=== PATIENT | female | born 1985 | race Caucasian/White ===

== ENCOUNTER 2021-10-16 10:51 | Emergency (ER) | payer OTHER, SELFPAY ==
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
[2021-10-16 11:03] VITALS: BP 133/86; PULSE 67; RESP 16; TEMP 36.9; O2SAT 99
== END 2021-10-16 11:24 | disposition home or self-care (01) ==
PROVIDERS: Emergency Provider Nurse Practitioner Family; PCP Nurse Practitioner Family
DX: S89.92XA Unspecified injury of left lower leg, initial encounter (principal); V03.10XA Pedestrian on foot injured in collision with car, pick-up truck or van in traffic accident, initial encounter
CPT/HCPCS: 81003; 87880; 99203; G0463

== ENCOUNTER 2022-01-13 09:40 | Emergency (ER) | payer OTHER, SELFPAY ==
[2022-01-13 09:48] VITALS: BP 128/79; PULSE 96; RESP 18; TEMP 36.9; O2SAT 97
--- NOTE | 2022-01-13 09:50 | ED.URI ---
HPI - URI/Sore Throat General Chief Complaint: Upper Respiratory Infection Stated Complaint: sore throat Time Seen by Provider: 01/13/22 10:00 Source: patient, RN notes reviewed and old records reviewed Mode of arrival: ambulatory Limitations: no limitations History of Present Illness HPI Narrative: 36-year-old female who presents to [facility] care with complaints of sore throat and cough which started yesterday and symptoms have increased today. Patient reports that her left tonsil is swollen and it is painful to swallow. She states that she has been running a 100F temperature and she awoke this morning drenched in sweat. Patient has had her COVID and influenza shot. MD elicited complaint: fever, cough and sore throat Pertinent past history: asthma and other (strep) Onset (ago): day(s) (1) Pain scale (0-10): 5 Exacerbating factors: swallowing Treatments prior to arrival: other (dayqui) Related Data Allergies Allergy/AdvReac Type Severity Reaction Status Date / Time penicillin G Allergy Mild Rash Verified 10/16/21 11:05 Sulfa (Sulfonamide Allergy Mild Rash Verified 10/16/21 11:05 Antibiotics) Review of Systems Review of Systems: CONSTITUTIONAL: Positive fever, chills, or sweats. EYES: Denies visual changes, redness, or discharge. ENT: Denies rhinorrhea, congestion,positive sore throat, or otalgia. CARDIOVASCULAR: Denies chest pain, palpitations, or edema. RESPIRATORY: Positive for dry cough no dyspnea. GASTROINTESTINAL: Denies abdominal pain, nausea, vomiting, or diarrhea. GENITOURINARY: Denies dysuria or hematuria. SKIN: Denies rash or itching. MUSCULOSKELETAL: Denies back pain, joint pain, or myalgia. NEUROLOGIC: Denies headache, numbness, or weakness. PSYCHIATRIC: Positive history of anxiety or depression. All systems reviewed & are unremarkable except as noted in HPI and below PMFSH Past Medical History Medical History (Updated 01/15/22 @ 10:15 by Cassi Elise NP) Anxiety and depression Strep throat Surgical History Surgical History (Updated 01/13/22 @ 21:02 by Cassi Elise NP) H/O left knee surgery x2 Family History Family History (Updated 01/13/22 @ 09:53 by Cassi Elise NP) Grandparent Diabetes mellitus Hypertension Heart disease Cerebrovascular accident Arthritis Father Hypertension Heart disease Arthritis Mother Hypertension Social History Social History (Updated 01/13/22 @ 21:02 by Cassi Elise NP) Smoking status: Never smoker Alcohol intake: current Alcohol use details: social Substance use type: does not use Living arrangements: with family Gender identity (if verbalized by the patient): Female Comments At time of signature, agree with nursing past medical, surgical, social and family history. There is no relevant family history pertinent to the presenting complaint Exam Narrative: GENERAL:Ill-appearing, well-nourished, and in no acute distress. HEAD: Normocephalic, atraumatic. EYES: PERRLA and EOMI. ENT: Nares clear, no rhinorrhea or epistaxis. Mucous membranes moist.TM's normal with good light reflex, throat red left tonsil enlarged red with white pus pocket noted. NECK: Supple.lymphadenopathy CHEST: Clear to auscultation. No respiratory distress. dry cough no dyspnea SAO2 97% on room air HEART: Regular rate and rhythm. No murmur heard. Normal peripheral pulses. ABDOMEN: Soft, nontender, nondistended, normal active bowel sounds. EXTREMITIES: Normal range of motion. No edema. SKIN: Warm, dry, no rash. NEURO: No focal deficits. Alert and oriented x3. Course Course Level of Care: Express Care Visit Vital Signs Vital signs: Vital Signs Temperature 36.9 C 01/13/22 09:48 Pulse Rate 96 01/13/22 09:48 Respiratory Rate 18 01/13/22 09:48 Blood Pressure 128/79 01/13/22 09:48 Pulse Oximetry 97 01/13/22 09:48 Oxygen Delivery Room Air 01/13/22 09:48 Temperature 36.9 C 01/13/22 09:48 Pulse Rate 96 01/13/22 0
== END 2022-01-13 10:23 | disposition home or self-care (01) ==
PROVIDERS: Emergency Provider Registered Nurse; PCP Nurse Practitioner Family
DX: J02.0 Streptococcal pharyngitis (principal)
CPT/HCPCS: 87880; 99213; G0463

== ENCOUNTER 2022-04-30 16:41 | Emergency (ER) | payer OTHER, SELFPAY ==
--- NOTE | 2022-04-30 16:46 | ED.SKABFB ---
HPI - Skin/Abscess/Foreign Bdy General Chief complaint: Skin/Abscess/Foreign Body Stated complaint: Skin Problem Time Seen by Provider: 04/30/22 16:55 Source: patient Mode of arrival: ambulatory Limitations: no limitations History of Present Illness HPI narrative: Nakia is a 36-year-old female patient presenting to clinic today with complaints of a skin sore/mass to the left mid forehead that has gradually gotten worse over the past 2 days. Area is approximately half centimeter and tender to touch Related Data Allergies Allergy/AdvReac Type Severity Reaction Status Date / Time penicillin G Allergy Mild Rash Verified 04/30/22 16:56 Sulfa (Sulfonamide Allergy Mild Rash Verified 04/30/22 16:56 Antibiotics) Review of Systems Review of Systems: Pertinent positives per HPI. Patient denies any fever, chills, rash, headache, visual changes, dizziness, cough, runny nose, sore throat, shortness of breath, chest pain, palpitations, nausea, vomiting, diarrhea, constipation, abdominal pain, or any urinary issues. PMFSH Past Medical History Medical History Anxiety and depression Strep throat Surgical History Surgical History H/O left knee surgery x2 Family History Family History Grandparent Diabetes mellitus Hypertension Heart disease Cerebrovascular accident Arthritis Father Hypertension Heart disease Arthritis Mother Hypertension Social History Social History Smoking status: Never smoker Alcohol intake: current Alcohol use details: social Substance use type: does not use Gender identity (if verbalized by the patient): Female Comments At the time of my signature, I reviewed and agree with the nursing past medical, surgical, social, and family history. There is no relevant family history pertinent to the patient complaint. Exam Narrative: General: Well-developed, well nourished, in no apparent distress Head: Normocephalic, atraumatic. Cardio: Regular rate and rhythm, s1 and s2 normal, no murmur appreciated. Resp: Clear to auscultation bilaterally, no rhonchi, rales, wheezing or rubs. Integumentary: [place], warm, and dry, 0.5 cm firm tender mass with mild redness to the left mid forehead near the top of the nasal bridge. Area is non fluctuant Course Course Emergency Course: Portions of this record may have been created with voice recognition software. Level of Care: Express Care Visit Vital Signs Vital signs: Vital signs reviewed MDM - Skin/Abscess/Foreign Bdy MDM Narrative Medical decision making narrative: At the time of visit patient is resting comfortably on the exam table. I suspect the patient may have a skin infection (small abscess) but cannot rule out a cyst. We will give course of doxycycline to see if it resolves. Recommend follow-up with your PCP in 7 to 10 days if symptoms persist or sooner if they worsen. Supportive measures were discussed with the patient she voiced understanding of discharge instructions and agrees to treatment plan Differential Diagnosis Differential diagnosis: Likely abscess of skin or subcutaneous tissue and other (Firm skin mass, cyst) Discharge Plan Discharge Clinical Impression: Localized skin mass, lump, or swelling Patient Disposition: Home, Self-Care Condition: Stable Instructions: Antibiotic Form Additional Instructions: This could be the beginning of an abscess or cyst-we will give doxycycline to see if this resolves Take doxycycline as prescribed May take Tylenol/Motrin as needed for pain May apply moist heat to the affected area to see if you can get this to a head and have it drained Follow-up with your PCP in 7 to 10 days if symptoms persist or sooner if they worsen Pr
[2022-04-30 16:48] VITALS: BP 138/78; PULSE 58; RESP 14; TEMP 36.9; O2SAT 100
== END 2022-04-30 17:05 | disposition home or self-care (01) ==
PROVIDERS: Emergency Provider Nurse Practitioner Family; PCP Nurse Practitioner Family
DX: R22.0 Localized swelling, mass and lump, head (principal)
CPT/HCPCS: 99213; G0463

== ENCOUNTER 2022-07-11 12:51 | Emergency (ER) | payer OTHER, SELFPAY ==
[2022-07-11 13:00] VITALS: BP 131/66; PULSE 86; RESP 14; TEMP 37.5; O2SAT 99
--- NOTE | 2022-07-11 13:59 | ED.URI ---
HPI - URI/Sore Throat General Chief Complaint: Upper Respiratory Infection Stated Complaint: sore throat Time Seen by Provider: 07/11/22 13:59 Source: patient Mode of arrival: ambulatory Limitations: no limitations History of Present Illness MD elicited complaint: cough and sore throat Related Data Allergies Allergy/AdvReac Type Severity Reaction Status Date / Time penicillin G Allergy Mild Rash Verified 04/30/22 16:56 Sulfa (Sulfonamide Allergy Mild Rash Verified 04/30/22 16:56 Antibiotics) Review of Systems Review of Systems: CONSTITUTIONAL: Denies malaise, chills, sweats, or fever. EYES: Denies visual changes, redness, or discharge. ENT: Reports rhinorrhea, congestion, sinus pain, otalgia and sore throat. CARDIOVASCULAR: Denies chest pain, palpitations, or edema. RESPIRATORY: Reports cough.? Denies dyspnea. GASTROINTESTINAL: Denies abdominal pain, nausea, vomiting, diarrhea SKIN: Denies rash or itching. MUSCULOSKELETAL: Denies myalgia. NEUROLOGIC: Denies headache. All systems reviewed & are unremarkable except as noted in HPI and below PMFSH Past Medical History Medical History Anxiety and depression Strep throat Surgical History Surgical History H/O left knee surgery x2 Family History Family History Grandparent Diabetes mellitus Hypertension Heart disease Cerebrovascular accident Arthritis Father Hypertension Heart disease Arthritis Mother Hypertension Social History Social History Smoking status: Never smoker Alcohol intake: current Alcohol use details: social Substance use type: does not use Gender identity (if verbalized by the patient): Female Comments At time of signature, agree with nursing past medical, surgical, social and family history. There is no relevant family history pertinent to the presenting complaint Exam Narrative: GENERAL: Well-appearing, well-nourished, and in no acute distress. HEAD: Normocephalic EYES: PERRLA, conjunctivae clear ENT: Nares clear, turbinates edematous and erythematous, clear discharge. Mucous membranes moist. TM pearly harry with dull light reflex bilaterally; no tragal tenderness. Oropharynx erythematous without lesions. Tonsils not enlarged and without exudate, no drooling, no hoarseness, no trismus, uvula midline. NECK: Supple. No lymphadenopathy CHEST: Clear to auscultation, breath sounds equal. No wheezing, rhonchi, rales, or stridor. No respiratory distress, speaks in full sentences. HEART: Regular rate and rhythm. No murmur heard. SKIN: Warm, dry, no rash. NEURO: Alert and oriented x3. PSYCH: Normal mood and affect Course Course Emergency Course: Patient is aware of diagnosis, understands and agrees to treatment plan.? Anticipatory guidance given.? Patient agrees to follow-up as directed and is aware of reasons to seek care at the emergency department. Portions of this record may have been created with voice recognition software Level of Care: Express Care Visit Vital Signs Vital signs: Vital Signs Temperature 37.5 C 07/11/22 13:00 Pulse Rate 86 07/11/22 13:00 Respiratory Rate 14 07/11/22 13:00 Blood Pressure 131/66 07/11/22 13:00 Pulse Oximetry 99 07/11/22 13:00 Oxygen Delivery Room Air 07/11/22 13:00 Temperature 37.5 C 07/11/22 13:00 Pulse Rate 86 07/11/22 13:00 Respiratory Rate 14 07/11/22 13:00 Blood Pressure 131/66 07/11/22 13:00 Pulse Oximetry 99 07/11/22 13:00 Oxygen Delivery Room Air 07/11/22 13:00 Reviewed MDM - URI/Sore Throat MDM Narrative Medical decision making narrative: Differential diagnosis considered: Simpson virus, strep pharyngitis, allergic rhinitis, upper respiratory tract
--- NOTE | 2022-07-11 14:34 | ED.URI ---
HPI - URI/Sore Throat General Chief Complaint: Upper Respiratory Infection Stated Complaint: sore throat Time Seen by Provider: 07/11/22 13:59 Source: patient Mode of arrival: ambulatory Limitations: no limitations History of Present Illness HPI Narrative: 36 year old female who presents to [facility] care with complaints of sore throat especially to left side of her throat for the which started today. Patient reports that she had strep throat 2-3 weeks ago and was treated with completion of antibiotic. Patient denies any ear pain, nausea or vomiting or any acute nasal congestion or drainage.Patient reports low grade temp has taken some Ibuprofen and Tylenol.Patient has been vaccinaged for COVID with no Booster and has had flu shot. MD elicited complaint: sore throat Pertinent past history: other (strep throat) Treatments prior to arrival: acetaminophen and ibuprofen Related Data Allergies Allergy/AdvReac Type Severity Reaction Status Date / Time penicillin G Allergy Mild Rash Verified 04/30/22 16:56 Sulfa (Sulfonamide Allergy Mild Rash Verified 04/30/22 16:56 Antibiotics) Review of Systems Review of Systems: CONSTITUTIONAL: Reports malaise, chills, sweats, or fever. EYES: Denies visual changes, redness, or discharge. ENT: Reports rhinorrhea, congestion, sinus pain, no otalgia, positive for sore throat. CARDIOVASCULAR: Denies chest pain, palpitations, or edema. RESPIRATORY: No acute cough.? Denies dyspnea. GASTROINTESTINAL: Denies abdominal pain, nausea, vomiting, diarrhea SKIN: Denies rash or itching. MUSCULOSKELETAL: Denies myalgia. NEUROLOGIC: Denies headache. All systems reviewed & are unremarkable except as noted in HPI and below PMFSH Past Medical History Medical History Anxiety and depression Strep throat Surgical History Surgical History H/O left knee surgery x2 Family History Family History Grandparent Diabetes mellitus Hypertension Heart disease Cerebrovascular accident Arthritis Father Hypertension Heart disease Arthritis Mother Hypertension Social History Social History Smoking status: Never smoker Alcohol intake: current Alcohol use details: social Substance use type: does not use Gender identity (if verbalized by the patient): Female Comments At time of signature, agree with nursing past medical, surgical, social and family history. There is no relevant family history pertinent to the presenting complaint Exam Narrative: GENERAL: Well-appearing, well-nourished, and in no acute distress. HEAD: Normocephalic EYES: PERRLA, conjunctivae clear ENT: Nares clear, turbinates edematous and erythematous, clear discharge. Mucous membranes moist. TM pearly harry with dull light reflex bilaterally; no tragal tenderness. Oropharynx erythematous without lesions. Tonsils red enlarged especially left tonsil and without exudate, no drooling, no hoarseness, no trismus, uvula midline. NECK: Supple. lymphadenopathy CHEST: Clear to auscultation, breath sounds equal. No wheezing, rhonchi, rales, or stridor. No respiratory distress, speaks in full sentences.no acute cough noted, SAO2 99% on room air HEART: Regular rate and rhythm. No murmur heard. SKIN: Warm, dry, no rash. NEURO: Alert and oriented x3. PSYCH: Normal mood and affect Course Course Emergency Course: Patient is aware of diagnosis, understands and agrees to treatment plan.? Anticipatory guidance given.? Patient agrees to follow-up as directed and is aware of reasons to seek care at the emergency department. Portions of this record may have been created with voice recognition software Level of Care: Express Care Visit Vital Signs Vital signs: Vital Signs
== END 2022-07-11 14:45 | disposition home or self-care (01) ==
PROVIDERS: Emergency Provider Registered Nurse; PCP Nurse Practitioner Family
DX: J03.90 Acute tonsillitis, unspecified (principal)
CPT/HCPCS: 87081; 87880; 99213; G0463

== ENCOUNTER 2023-07-12 09:06 | Emergency (ER) | payer OTHER, MEDICAID, SELFPAY ==
[2023-07-12 09:10] VITALS: BP 133/80; PULSE 70; RESP 20; TEMP 36.3; O2SAT 98
--- NOTE | 2023-07-12 09:15 | ED.EAR ---
HPI - Ear Problem General Chief complaint: Ear Stated complaint: right ear Time Seen by Provider: 07/12/23 09:16 Source: patient, RN notes reviewed and old records reviewed Mode of arrival: ambulatory Limitations: no limitations History of Present Illness HPI Narrative: 37-year-old female who presents to [facility] Care with complaints of right ear pain which started yesterday. Patient reports that she had cold symptoms last week which included cough, headache , sinus congestion and drainage. Patient reports that those symptoms have improved with some residual sinus congestion. Patient reports that she has been taking DayQuil and NyQuil for her symptoms. Patient denies any shortness of breath or any body aches or fevers. Patient reports that she did home Covid test last week which was negative. MD Complaint: ear pain and decreased hearing Location: right ear Duration: constant Severity: moderate Discharge from ear: Reports no Treatment prior to arrival: other (Dayquil and NyQuil) Related Data Allergies Allergy/AdvReac Type Severity Reaction Status Date / Time penicillin G Allergy Mild Rash Verified 07/12/23 09:14 Sulfa (Sulfonamide Allergy Mild Rash Verified 07/12/23 09:14 Antibiotics) Review of Systems Review of Systems: CONSTITUTIONAL: Denies malaise, chills, sweats, or fever. EYES: Denies visual changes, redness, or discharge. ENT: Reports rhinorrhea, congestion, no sinus pain, right otalgia and no sore throat. CARDIOVASCULAR: Denies chest pain, palpitations, or edema. RESPIRATORY: Reports cough.? Denies dyspnea. GASTROINTESTINAL: Denies abdominal pain, nausea, vomiting, diarrhea SKIN: Denies rash or itching. MUSCULOSKELETAL: Denies myalgia. NEUROLOGIC: Reports some headache. All systems reviewed & are unremarkable except as noted in HPI and below PMFSH Past Medical History Medical History (Updated 07/12/23 @ 09:38 by Cassi Elise NP) Anxiety and depression Asthma Strep throat Surgical History Surgical History H/O left knee surgery x2 Family History Family History Grandparent Diabetes mellitus Hypertension Heart disease Cerebrovascular accident Arthritis Father Hypertension Heart disease Arthritis Mother Hypertension Social History Social History (Reviewed 07/12/23 @ 09:37 by PRASHANTH Shoemaker Smoking status: Never smoker Alcohol intake: current Alcohol use details: social Substance use type: does not use Living arrangements: with family Gender identity (if verbalized by the patient): Female Comments At time of signature, agree with nursing past medical, surgical, social and family history. There is no relevant family history pertinent to the presenting complaint Exam Narrative: GENERAL: Well-appearing, well-nourished, and in no acute distress. HEAD: Normocephalic EYES: PERRLA, conjunctivae clear ENT: Nares clear, turbinates edematous and erythematous, clear discharge. Mucous membranes moist.Right TM red and bulging, Left TM pearly harry with dull light reflex; no tragal tenderness. Oropharynx erythematous without lesions. Tonsils not enlarged and without exudate, no drooling, no hoarseness, no trismus, uvula midline. NECK: Supple. No lymphadenopathy CHEST: Clear to auscultation, breath sounds equal. No wheezing, rhonchi, rales, or stridor. No respiratory distress, speaks in full sentences. cough, SAO2 98% on room air HEART: Regular rate and rhythm. No murmur heard. SKIN: Warm, dry, no rash. NEURO: Alert and oriented x3. PSYCH: Normal mood and affect Course Course Emergency Course: Patient is aware of diagnosis, understands and agrees to treatment plan.? Anticipatory guidance given.? Patient agrees to follow-up as directed and is aware of reasons to seek care at the emergency department. Portions of this r
== END 2023-07-12 09:28 | disposition home or self-care (01) ==
PROVIDERS: Emergency Provider Registered Nurse; PCP Nurse Practitioner Family
DX: H66.91 Otitis media, unspecified, right ear (principal); J45.909 Unspecified asthma, uncomplicated
CPT/HCPCS: 99213; G0463